=== PATIENT | male | born 2005 | race Caucasian/White ===

== ENCOUNTER 2025-03-25 17:55 | Emergency (ER) | payer BC, SELFPAY ==
[2025-03-25 17:57] VITALS: BP 134/79
[2025-03-25 18:16] LABS: % Basophils 0.6 % (0-2); % Eosinophils 0.9 % (0-6); % Immature Granulocytes 0.2 % (0-0.5); % Lymphocytes 29.6 % (20.5-51.1); % Monocytes 6.9 % (1.7-9.3); % Neutrophils 61.8 % (42.2-75.2); Absolute Eosinophils 0.1 10^3/uL (0-0.7); Absolute Lymphocytes 1.6 10^3/uL (1.2-3.4); Absolute Monocytes 0.4 10^3/uL (0.1-0.6); Absolute Neutrophils 3.3 10^3/uL (1.4-6.5); Hematocrit 38.7 % (39.0-52.0); Hemoglobin 14.1 g/dL (13.0-18.0); Mean Corp Hgb Conc. 36.4 g/dL (33.0-37.0); Mean Corpuscular Hgb 31.8 pg (27.0-31.0); Mean Corpuscular Volume 87.4 fL (80.0-94.0); Mean Platelet Volume 9.2 fL (7.4-10.4); Nucleated Red Blood Cells % 0 % (-); Platelet Count 231 10^3/uL (130-400); Red Blood Cell Count 4.43 10^6/uL (4.70-6.10); Red Cell Dist. Width 11.7 % (11.5-14.5); White Blood Cell Count 5.3 10^3/uL (4.8-10.8)
[2025-03-25 18:37] LABS: ALT (SGPT) 13 U/L (0-50); AST (SGOT) 21 U/L (17-59); Albumin 4.9 g/dl (3.5-5.0); Alkaline Phosphatase 56 U/L (38-126); Blood Urea Nitrogen 14 mg/dl (9-20); Calcium 9.7 mg/dl (8.4-10.2); Carbon Dioxide 26 mmol/L (22-30); Chloride 106 mmol/L (98-107); Glucose 106 mg/dl (70-99); Potassium 4.2 mmol/L (3.5-5.1); Sodium 139 mmol/L (135-145); Total Bilirubin 0.3 mg/dl (0.2-1.3); Total Protein 7.4 g/dl (6.3-8.2); eGFR > 60.00
[2025-03-25 18:41] LABS: Troponin I < 0.012 ng/ml
[2025-03-25 19:49] VITALS: BP 121/69
--- NOTE | 2025-03-25 20:00 | ED.GENMED ---
History of Present Illness
General
Chief Complaint: Numbness
Time Seen by Provider: 03/25/25 20:00
History of Present Illness
History of Present Illness:
TIME OF INITIAL EVALUATION
- 8 PM
REVIEW OF OLD RECORDS
- No significant past medical history; the patient was seen here with periorbital pain in 2011.
CHIEF COMPLAINT(S)
Left arm numbness.
HISTORY OF PRESENT ILLNESS
The patient is a 19-year-old male presenting with numbness in the left arm that also involved the left leg initially, though the leg numbness has since improved. There are no symptoms on the right side. The symptoms began around 4:30 PM, with the
left arm continuing to experience numbness augustine to the sensation of a ' arm' followed by tingling. No neck pain is reported. The strength in the affected arm and leg was assessed and found to be excellent. Blood work was completed earlier and
revealed no abnormalities.
ADDITIONAL HISTORY OBTAINED FROM SOURCES OTHER THAN THE PATIENT
According to the patients family member, there is a concern due to familial history of cardiac events, as the patients father had a heart attack two months ago. However, the patient has not experienced any significant chest symptoms beyond a mild
episode earlier at approximately 5:00 PM.
PHYSICAL EXAM
Nursing notes reviewed and vital signs reviewed.
- Neurological: Coordination, strength, and sensation intact bilaterally. Speech is normal. NIHSS equals 0, no aphasia.
- Cranial Nerves: Intact with symmetrical facial movement, visual croft normal with no deficits noted.
- Cardiovascular: Regular heart rate; no immediate auscultation findings provided.
- General: Well appearing in no distress
- HEENT: Moist oral mucosa
- Cardiovascular: No murmurs, normal heart rate, regular rhythm, No chest wall tenderness
- Pulmonary: No respiratory distress, breath sounds are clear and equal
- Abdomen: Soft with no peritoneal signs, no tenderness
- Psychiatric: Appropriate mental status, normal insight and judgement
- Extremities: Nontender, no edema, moves all extremities equally
- Skin: No rash, no lesions
PLAN
Further neurological assessment and monitoring. Consideration for imaging (CT scan) was mentioned but deemed likely unnecessary by clinical judgment. Continued observation given the acute nature and resolution of some symptoms.
DIFFERENTIAL DIAGNOSIS
The Differential Diagnosis includes, in no particular order and is not limited to:
1. Transient ischemic attack
2. Peripheral neuropathy
3. Brachial plexus injury
4. Cervical radiculopathy
5. Hypocalcemia or electrolyte imbalance
6. Migraine with aura
7. Multiple sclerosis
8. Anxiety-induced somatic symptoms
9. Carpal tunnel syndrome
10. Early onset stroke
RADIOLOGY
- Not indicated
EKG
- Sinus 69, no acute ST abnormality
LABS
- CBC, chemistries, troponin unremarkable
UPDATE
-SUMMARY OF ENCOUNTER
The patient presented with left arm numbness. Initial workup, including blood work and ECG, was normal. Neurologic examination revealed no significant abnormalities, and the stroke was considered unlikely based on clinical presentation.
DISPOSITION
The patient was deemed stable and agreed to discharge home.
ASSESSMENT
The primary concern was transient numbness in the left arm.
PLAN
The patient will be discharged with monitoring and further follow-up as needed.
INDEPENDENT REVIEW OF LABS AND INTERPRETATION OF TESTS
My independent review of the blood work is that it is normal. My independent interpretation of the ECG is that it is excellent with no abnormalities noted.
ADDITIONAL TESTING AND IMAGING CONSIDERED
A CT scan was considered but deemed unnecessary as it would not definitively rule in a stroke for this presentation.
MEDICAL DECISION MAKING
Differential diagnoses considered included transient ischemic attack and other potential causes of arm numbness, but further testings such as CT were deemed unnecessary. The decision was made based on a stable clinical presentation and supportive
normal workup, including neurologic assessment.
PATHOLOGIES TO CONSIDER
Stroke and transient ischemic attack were considered but deemed unlikely based on examination and normal test results.
Phy Exam
Physical Exam
Physical Exam:
See HPI
Course
Orders/Labs/Results
Orders:
Orders
03/25/25 18:01
Electrocardiogram (*1) Urgent
Reason for Study: Other
Other Reason for Exam: numbness
EKG- Treatment ONCE
03/25/25 18:10
Complete Blood Count/With Diff Urgent
Comprehensive Metabolic Panel Urgent
Troponin I Urgent
Abnormal Lab Results
03/25/25
18:10
RBC 4.43 L 10^6/uL
(4.70-6.10)
Hct 38.7 L %
(39.0-52.0)
MCH 31.8 H pg
(27.0-31.0)
Glucose 106 H mg/dl
(70-99)
03/25/25 18:10
03/25/25 18:10
Vital Signs
Initial and Last Documented VS:
Initial Vital Signs
Temp Pulse Resp BP Pulse Ox
36.7 C 73 16 134/79 96
03/25/25 17:57 03/25/25 17:57 03/25/25 17:57 03/25/25 17:57 03/25/25 17:57
Last Documented Vital Signs
Temp Pulse Resp BP Pulse Ox
36.7 C 79 17 121/69 100
03/25/25 17:57 03/25/25 19:49 03/25/25 19:49 03/25/25 19:49 03/25/25 20:01
*Pulse Oximetry
SaO2: 100
Oxygen Mode of Delivery: Room air
Patient hypoxic: no
*Critical Care Note
Total Time (30-74mins, 75-104mins- exclusive of procedures): Not Applicable
ED Attending Note
-
Portions of this chart may have been created with voice recognition software.� Occasional wrong word or��sound alike� substitutions may have occurred due to the inherent limitations of voice recognition software.
Discharge Plan
Departure
Referrals:
NONE,* [Family Provider, Internal Medicine]
Interventions
Interventions:
*Risk Screen - Suicide Last Done: 03/25/25 19:49
*General Assessment Last Done: 03/25/25 19:49
*Neglect/Abuse Screening Last Done: 03/25/25 19:49
*ED- Fall Risk Assessment Last Done: 03/25/25 19:49
*ED COVID-19 Vaccine History Last Done: 03/25/25 19:49
ED- Neurological Assessment Last Done: 03/25/25 19:49
Discharge Date and Time
Print Language: GREEK
== END 2025-03-25 21:23 | disposition home or self-care (01) ==
LOC: EMR 17:55
PROVIDERS: Emergency Medicine; EMERGENCY PHYSICIAN Emergency Medicine
DX: R20.0 Anesthesia of skin (principal)
CPT/HCPCS: 99283; 80053; 84484; 85025; 93005